=== PATIENT | female | born 1940 | race Caucasian/White ===

== ENCOUNTER 2017-06-11 12:57 | Observation (INO) | payer MEDICARE, BC ==
[~2017-06-11] VITALS: Ht 157.5 cm; Wt 72.6 kg
--- NOTE | ~2017-06-11 | HEMODYNAMI ---
PATIENT:VONNIE LARKIN MEDICAL RECORD: [id number] : 42 LOCATION:[address] ADMISSION DATE: 06/11/17 Generatedon:06/13/20179:26 Patient name: VONNIE LARKIN Patient #: [id number] SSN: : 1940 Date of study: 06/13/2017 Page: Of Hemodynamic Procedure Report Patient Data Patient Demographics Procedure consent was obtained First Name: VONNIE Gender: Female Last Name: TRAE : 1940 Patient #: [id number] Age: 77 year(s) Race: Additional ID: [id number] Contact details Address: [address] [place] [address] State: [place] City: [place] Zip code: [address] Past Medical History Allergies: No known allergies Admission Admission Data Admission Date: 06/11/2017 Admission Time: 18:20 Room #: 2121 Lab Results Lab Result Date: 06/12/2017 Lab Result Time: 0:00 Biochemistry Name Units Result Min Max BUN mg/dl 23 --(----)-* 7 18 Creatinine mg/dl 1.2 --(---*)-- 0.6 1.3 CBC Name Units Result Min Max Hemoglobin g/dl 14.3 --(*---)-- 13.5 17.5 Procedure Procedure Types Cath Procedure Diagnostic Procedure PCI Procedure Coronary Stent Coronary Stent Initial Miscellaneous Procedures Moderate Sedation up to 15 minutes Procedure Description Procedure Date Procedure Date: 06/13/2017 Procedure Start Time: 9:15 Procedure End Time: 9:25 Procedure Staff Name Function Phi Ramirez MD Performing Physician Helena Martins RT Monitor Xiao Bell RT Scrub Karan Anderson RN Nurse Procedure Data Cath Procedure Fluoroscopy Diagnostic fluoroscopy Total fluoroscopy Time: 1.8 time: 1.8 min min Diagnostic fluoroscopy Total fluoroscopy dose: 125 dose: 125 mGy mGy Contrast Material Contrast Material Type Amount (ml) Isovue 300 36 Entry Location Entry Primary Successful Side Size Upsize Upsize Entry Closure Succes sful Closure Location (Fr) 1 (Fr) 2 (Fr) Remarks Device Remarks Femoral Left 6 Fr Exoseal artery Short Estimated blood loss: 10 ml Procedure Complications No complications Procedure Medications Medication Administration Route Dosage Oxygen NC 2 l/min Heparin Flush Bag added to field 2 bags (1000units/500ml NS) 0.9% NaCl I.V. 100 ml/hr Fentanyl I.V. 50 mcg Versed I.V. 1 mg Fentanyl I.V. 50 mcg Versed I.V. 1 mg Fentanyl I.V. 50 mcg Versed I.V. 1 mg Heparin Bolus I.V. 4000 units Fentanyl I.V. 50 mcg Versed I.V. 1 mg Hemodynamics Rest HGB: 14.3 (g/dl) Heart Rate: 104 (bpm) Snapshots Pre Cath Intra NCS Post Cath Vital Signs Time Heart Resp SPO2 etCO2 NIBP (mmHg) Rhythm Pain Sedation Rate (ipm) (%) (mmHg) Status Level (bpm) 8:57:43 108 18 100 0 130/90(108) NSR 0 (11) 10(A) , No pain 9:01:53 103 18 99 31.7 124/77(100) NSR 0 (11) 10(A) , No pain 9:05:59 98 19 99 29.4 115/72(91) NSR 0 (11) 10(A) , No pain 9:10:07 98 19 99 30.9 119/71(91) NSR 0 (11) 10(A) , No pain 9:14:14 100 17 99 36.9 111/70(84) NSR 0 (11) 10(A) , No pain 9:18:22 103 18 96 30.9 104/64(81) NSR 0 (11) 9(A) , No pain 9:22:28 105 17 96 38.5 105/60(83) NSR 0 (11) 9(A) , No pain 9:24:41 106 17 97 36.2 112/60(89) NSR 0 (11) 9(A) , No pain Medications Time Medication Route Dose Verified Delivered Reason Notes Effectiveness by by 9:10:05 Oxygen NC 2 Phi Russo Per physician l/min Ashley Anderson RN 9:10:35 Heparin Flush added 2 Phi Karan used for Bag to bags Ashley Anderson RN procedure (1000units/500ml field NS) 9:10:48 0.9% NaCl I.V. 100 Phi Karan Per physician ml/hr Ashley Anderson RN 9:11:54 Fentanyl I.V. 50 Phi Karan for sedation mcg Ashley Anderson RN 9:12:01 Versed I.V. 1 mg Phi Karan for sedation Ashley Anderson RN 9:14:16 Fentanyl I.V. 50 Phi Karan for sedation mcg Ashley Anderson RN 9:14:19 Versed I.V. 1 mg Phi Karan for sedation Ashley Anderson RN 9:16:25 Fentanyl I.V. 50 Phi Karan for sedation mcg Ashley Anderson RN 9:16:28 Versed I.V. 1 mg Phi Karan for sedation Ashley Anderson RN 9:17:34 Heparin Bolus I.V. 4000 Phi Karan for units Ashley Anderson RN anticoagulation 9:18:05 Fentanyl I.V. 50 Phi Karan for sedation mcg Ashley Anderson RN 9:18:08 Versed I.V. 1 mg Phi Karan for sedation Ashley Anderson propagation worker Log Time Note 8:40:04 Informed consent obtained and on chart 8:40:07 Diagnostic Cath Status : Elective 8:40:47 Karan Anderson RN sent for patient. Start room use. 8:40:48 Time tracking: Regular hours 8:40:52 Plan of Care:Hemodynamics will remain stable., Cardiac rhythm will remain stable., Comfort level will be maintained., Respiratory function will remain adequate., Patient/ family verbilizes understanding of procedure., Procedure tolerated without complication., Recovers from procedure without complications.. 8:56:45 Vital chart was started 8:57:10 Patient received from Med II to CCL 2 Alert and oriented. Tansferred to table in Supine position. 8:57:11 Warm blankets applied, and salvatore hugger turned on for patient comfort. 8:57:11 Correct patient and procedure confirmed by team. 8:57:13 ECG and BP/O2 sat monitors applied to patient. 8:57:15 Baseline sample Acquired. 8:57:20 Rhythm: sinus tachycardia 8:57:23 Full Disclosure recording started 8:57:35 H&P Date Dictated: 06/11/2017 Within 30 days and on chart.. 8:57:38 Pre-procedure instructions explained to patient. 8:57:44 Family in patients room. 8:57:46 Patient NPO since Midnight. 8:57:52 Patient allergic to No known allergies 8:57:57 Is the patient allergic to Iodine/contrast media? No. 8:57:59 Was the patient premedicated? Yes 8:58:03 Is patient on blood thinner?Yes 8:58:06 ACC The patient was administered the following blood thiners within the last 24 hours: ACCPlavix 8:58:10 Patient diabetic? No. 8:58:22 Snore? Yes 8:58:24 Sleep apnea? No 8:58:29 Airway obstruction? No ? 8:58:35 Patient pain scale 0/10 ?. 8:58:48 Lab results completed and on chart. 8:58:53 Left groin area was prepped with chlora-prep and draped in sterile fashion 8:58:54 Alarms reviewed by R. N. 8:58:54 Sharps counted by scrub and verified by R.N. 8:58:56 Physician paged 9:00:45 Use device set TAUTH PCI 9:00:48 INFLATOR Merit BasixCompak ([id number]) opened to sterile field. 9:00:49 SHEATH 6FR Denbo (FTH735) opened to sterile field. 9:00:59 Use device set Femoral Dx 9:01:04 ACIST Syringe (25082) opened to sterile field. 9:01:05 Bag Decanter (2002S) opened to sterile field. 9:01:05 Medline Cath Pack ([id number]) opened to sterile field. 9:01:19 DIAGNOSTIC WIRE .035 260cm J wire (556475) opened to sterile field. 9:01:20 ACIST Hand Control (39856) opened to sterile field. 9:01:21 ACIST Manifold (71427) opened to sterile field. 9:01:22 Tegaderm 4 x 4 (1626W) opened to sterile field. 9:01:25 PERCUTANEOUS ENTRY 19GA needle opened to sterile field. 9:10:05 Oxygen 2 l/min NC was administered by Karan Anderson RN; Per physician; 9:10:35 Heparin Flush Bag (1000units/500ml NS) 2 bags added to field was administered by Karan Anderson RN; used for procedure; 9:10:48 0.9% NaCl 100 ml/hr I.V. was administered by Karan Anderson RN; Per physician; 9:11:27 Physician arrived 9::28 --------ALL STOP TIME OUT------ ::29 Final Timeout: patient, procedure, and site verified with staff and physician. All members of the team are in agreement. 9:11:32 Left groin site verified by team. 9:11:37 Physical assessment completed. ASA score P 2 - A patient with mild systemic disease as per Phi Ramirez MD. 9:11:41 Sedation plan: IV Moderate Sedation Medication:Versed, Fentanyl 9:11:54 Fentanyl 50 mcg I.V. was administered by Karan Anderson RN; for sedation; 9:12:01 Versed 1 mg I.V. was administered by Karan Anderson RN; for sedation; 9:12:40 Procedure type changed to Cath procedure, Diagnostic procedure, PCI procedure, Coronary Stent, Coronary Stent Initial, Miscellaneous Procedures, Moderate Sedation up to 15 minutes 9:14:16 Fentanyl 50 mcg I.V. was administered by Karan Anderson RN; for sedation; 9:14:19 Versed 1 mg I.V. was administered by Karan Anderson RN; for sedation; 9:15:07 Zero performed for pressure channel P1 9:15:13 Zero performed for pressure channel P1 9:15:20 Procedure started. 9:15:29 Local anesthetic to left femerol artery with Lidocaine 2% by Phi Ramirez MD.INITIAL ACCESS ONLY 9:15:40 A 6 Fr Short sheath was inserted into the Left Femoral artery 9:15:51 GUIDE 6FR XBLAD 3.5 catheter ([id number]) opened to sterile field. 9:16:04 6 Fr XBLAD 3.5 guide catheter was inserted over the wire 9:16:25 Fentanyl 50 mcg I.V. was administered by Karan Anderson RN; for sedation; 9:16:28 Versed 1 mg I.V. was administered by Karan Anderson RN; for sedation; 9:17:34 Heparin Bolus 4000 units I.V. was administered by Karan Anderson RN; for anticoagulation; 9:18:05 Fentanyl 50 mcg I.V. was administered by Karan Anderson RN; for sedation; 9:18:08 Versed 1 mg I.V. was administered by Karan Anderson RN; for sedation; 9:18:36 CHOICE PT Extra Support 182cm wire ([id number]) opened to sterile field. 9:18:51 Choice PT ex wire advanced. 9:18:53 Wire advanced across lesion. 9:19:32 FEMSTOP Gold ([id number]) opened to sterile field. 9:20:30 Inflation Number: 1 A PUJA RX 2.25 x 38 stent ([id number]) was prepped and advanced across the Mid LAD. The stent was deployed at 15 SAUD for 0:10 (min:sec). 9:21:13 Inflation number: 2 The stent balloon was then re-inflated across the Mid LAD to 15 SAUD for 0:20 (min:sec). 9:22:16 EXOSEAL 6Fr (EX600) opened to sterile field. 9:22:40 Wire removed. 9:22:40 Guide catheter removed. 9:23:35 Sheath removed intact; hemostasis achieved with Exoseal to the Left Femoral artery. 9:23:38 Procedure ended.(Physican Out) 9:23:54 Fluoroscopy time 01.80 minutes. 9:23:58 Fluoroscopy dose: 125 mGy 9:23:58 Flurop Dose total: 125 9:24:03 Contrast amount:Isovue 300 36ml. 9:24:04 Sharps counted by scrub and verified by R.N. 9:24:05 Insertion/operative site no bleeding no hematoma. 9:24:11 Post left femerol artery:stable 9:24:17 Post-procedure physical assessment completed. ASA score P 2 - A patient with mild systemic disease as per Phi Ramirez MD. 9:24:24 Estimated blood loss: 10 ml 9:24:26 Post procedure instruction explained to patient.Patient verbalizes understanding. 9:24:41 Procedure and supply charges have been captured, reviewed, submitted and are correct. 9:25:25 Procedure Complication : No complications 9:25:28 Vital chart was stopped 9:25:28 See physician's report for complete and final results. 9:25:30 Report given to Pre/Post Procedure Room. 9:25:35 Patient transfered to [facility] with Bed. 9:25:37 Procedure ended. 9:25:37 Full Disclosure recording stopped 9:25:44 ACC-PCI Only Patient was given prescriptions, or instructed by Phi Ramirez MD to start/continue the following medications upon discharge: Plavix 9:25:47 End room use (Document Last) Intervention Summary Intervention Notes Time ActionType Lesion and Equipment Used Action# Pressure Duration Attributes 9:20:30 Place stent Mid LAD PUJA RX 2.25 x 1 15 00:10 38 stent ([id number]) 9:21:13 Reinflate Mid LAD PUJA RX 2.25 x 2 15 00:20 stent 38 stent balloon ([id number]) Device Usage Item Name Manufacture Quantity Catalog Number [facility] Part Current M inimal Lot# / Charge Number Stock Stock Serial# Code INFLATOR Merit Merit 1 [id number] 356875 607202 1 5 Honeit, Inc. (MA8698) SHEATH 6FR Terumo 1 WYR363 344979 958005 160675 4 0 Denbo (MQN548) ACIST Syringe Acist 1 71771 921849 503402 167477 2 0 (39385) Medical Systems Inc Bag Decanter Microtek 1 2001S 886279 62310 877404 5 (2001S) Medical Inc. Medline Cath Cardinal 1 [id number] 285501 18204 595853 5 Pack Health ([id number]) DIAGNOSTIC St Srini 1 662176 528157 761636 564132 3 0 WIRE .035 260cm J wire (810757) ACIST Hand Acist 1 28795 932072 879805 000685 5 Control Medical (78975) Systems Inc ACIST Manifold Acist 1 67358 661510 680605 438582 5 (67880) Medical Systems Inc Tegaderm 4 x 4 3M 1 1626W 565050 114915 953454 5 (1626W) PERCUTANEOUS Cook Medical 1 D82798 980793 791535 5 ENTRY 19GA needle GUIDE 6FR Cardinal 1 [id number] 985208 030780 416212 1 0 XBLAD 3.5 Health catheter ([id number]) CHOICE PT [place] 1 [id number] 329258 653425 755789 5 Extra Support Scientific 182cm wire ([id number]) FEMSTOP Gold St Srini 1 M22638 822393 457246 874843 5 (K57067) PUJA RX 2.25 x Medtronic 1 [id number] 506058 3619075 883791 5 [id number] 38 stent ([id number]) EXOSEAL 6Fr Cardinal 1 EX600 881048 068386 659923 1 0 (EX600) Health Signature Audit [place] Stage Time Signature Unsigned Intra-Procedure 06/13/2017 Helena Martins 9:26:08 AM RT(R) Signatures Monitor : Helena Martins Signature : RT Date : Time : [id number] [place] [address]
--- NOTE | ~2017-06-11 | DS ---
PATIENT:VONNIE AGUILAR :42 MEDICAL RECORD: [id number] DISCHARGE SUMMARY ADMISSION DATE: 06/11/17 DISCHARGE DATE: 06/13/17 DISCHARGE DIAGNOSES: 1. Angina. 2. Coronary artery disease. 3. Percutaneous transluminal coronary angioplasty stent right coronary artery and left anterior descending this admission. HOSPITAL COURSE: Mrs. Aguilar presents with unstable anginal symptomatology, found to have 2-vessel disease of the RCA and LAD, underwent successful PTCA stent of above territories, had an uneventful postop course. She was discharged home to follow up with [facility] in 1 month with the addition of aspirin and Plavix to her medical regimen. TRANSINT:[id number] Voice Confirmation ID: [id number] DOCUMENT ID: [id number] АННА LANGLEY MD at 1759 CC: [id number] DICTATION DATE: 06/13/17923 GEOTHERMAL INSTALLER: 06/13/17 2249 DIS IN 06/13/17 [address] [place] [address]
--- NOTE | ~2017-06-11 | HP ---
PATIENT: VONNIE AGUILAR MEDICAL RECORD: [id number] ACCOUNT: [id number] LOCATION:[address] : 42 ADMISSION DATE: 06/11/17 HISTORY AND PHYSICAL EXAMINATION ADMITTING DIAGNOSES: 1. Chest pain compatible with angina, unstable. 2. Palpitations. 3. Hypertension. HISTORY OF PRESENT ILLNESS: Mrs. Aguilar has had 2 weeks of increasing episodes of chest pain, chest discomfort compatible with angina, very typical, crushing sensation across the anterior chest with radiation to the jaw. She had prolonged episode yesterday, presented to Emergency Room. Her troponin is normal. She has continued to have episodes of chest heaviness overnight and this morning. She was initially tachycardic. The tachycardia was treated with a beta-tomas. She is no longer tachycardic, but still having its symptomatology. REVIEW OF SYSTEMS: The patient reports easy bruising but reports no swollen glands. The patient reports no fever, no night sweats, no significant weight gain, no significant weight loss. No significant exercise tolerance. The patient reports no dry eyes, no irritation, no vision change. Patient reports no difficulty hearing and no ear pain. Patient reports no frequent nose bleeds or nose and sinus problems. Patient reports on arm pain on exertion. No shortness of breath while lying down. No history of heart murmur. Patient reports no cough, no wheezing or coughing up blood. Patient reports no abdominal pain, no vomiting. Normal appetite. No diarrhea and not vomiting blood. No nausea and no constipation. Patient reports no incontinence. No difficulty urinating. No hematuria. No increased frequency. Patient reports no muscle aches. No weakness, no arthralgias, no back pain. No swelling of the extremities. Patient reports no abnormal mole, no jaundice, no rashes. Reports no loss of consciousness. No weakness and no numbness. No seizures, dizziness, or headaches. The patient reports no depression, no sleep disturbance, feeling safe in a relationship and no alcohol abuse. Patient reports on fatigue. Reports no runny nose or sinus pressure. No itching, no hives, and no frequent sneezing. PHYSICAL EXAMINATION: GENERAL APPEARANCE: Well-nourished, well-developed, appears stated age. Level of distress, comfortable. PSYCHIATRIC: Mental status, alert, normal affect. Orientation, oriented to time, place and person. EYES: Lids and conjunctiva, noninjected. No discharge, no pallor. ENT: Lips, teeth, gums, normal dentition. Oropharynx, no cyanosis, no pallor. NECK: Carotid arteries, bilateral normal upstroke, no bruits, no thrills. JUGULAR VEINS: No jugular venous pressure or distention. CERVICAL LYMPH NODES: Nontender, nonenlarged. THYROID: Not enlarged. Nontender. No nodules. LUNGS: Respiratory effort, unlabored. CHEST: Normal curvature. No thoracic deformity. No chest wall tenderness. Percussion, resonant. Auscultation, clear. No wheezes, no rales, no rhonchi. CARDIOVASCULAR: Precordial exam, nondisplaced. No heaves or pericardial thrills. Rate and rhythm, regular. Heart sounds, normal S1, normal S2. No S3, no gallop, no rub. Systolic murmur, not heard. Diastolic murmur, not heard. HISTORY AND PHYSICAL [id number] NIRAJCRISELDAVONNIE EXTREMITIES: No cyanosis, no edema. Peripheral pulses, full and equal in all extremities, except as noted. No bruits appreciated. ABDOMEN: Soft, nondistended. Normal aorta. No bruit. Nontender. No masses. Liver, nontender, no hepatomegaly. Spleen, nontender, no splenomegaly. MUSCULOSKELETAL: No joint tenderness. No joint swelling. No erythema. NEUROLOGICAL: Normal gait, normal strength, normal tone. SKIN: Warm and dry. OVERALL IMPRESSION: Chest pain compatible with angina in an unstable fashion. We will proceed with coronary angiography. Further care depends upon findings of the angiography. TRANSINT:[id number] Voice Confirmation ID: [id number] DOCUMENT ID: [id number] АННА LANGLEY MD at 1025 CC: [id number] DICTATION DATE: 06/12/17 0809 GRISTMILL OPERATOR: 06/12/17 0911 ADM IN [facility] [address] [place] [address]
--- NOTE | ~2017-06-11 | OP ---
PATIENT NAME: VONNIE LARKIN MEDICAL RECORD: [id number] :42 LOCATION:D[address]2121 ADMISSION DATE:06/11/17 SURGEON: АННА LANGLEY MD DATE OF OPERATION: 06/13/2017 PROCEDURES: 1. PTCA stent to LAD. 2. Selective coronary angiography. INDICATION: Angina and coronary artery disease. PROCEDURE IN DETAIL: After informed consent was obtained and after detailed explanation of risks, benefits as well as alternative therapies, the patient elected to proceed with angiogram and angioplasty. The left femoral area was prepped and draped in normal sterile fashion. Left femoral artery was cannulated via modified Seldinger technique with placement of 6-Polish sheath. All catheters exchanged through this sheath. FINDINGS: The left anterior descending has 2 areas of 75% stenosis. These were both covered with a 2.25 x 38 mm Bronson stent taken to 15 atmospheres. Result was 0% residual stenosis. OVERALL IMPRESSION: Successful percutaneous transluminal coronary angioplasty stent of the left anterior descending going from 75% initial stenosis times 2 to 0% residual stenosis. TRANSINT:[id number] Voice Confirmation ID: [id number] DOCUMENT ID: [id number] АННА LANGLEY MD at 1759 CC: [id number] DICTATION DATE: 06/13/17925 DESOLDERER: 06/13/17 1247 DIS IN 06/13/17 [facility] [address] [place] [address]
--- NOTE | ~2017-06-11 | OP ---
PATIENT NAME: VONNIE LARKIN MEDICAL RECORD: [id number] :42 LOCATION:D[address]M2 [address].2121 ADMISSION DATE:06/11/17 SURGEON: АННА LANGLEY MD DATE OF OPERATION: 06/12/2017 PROCEDURES: 1. PTCA stent RCA. 2. Left heart catheterization. 3. Selective coronary angiography. 4. Left ventriculogram. INDICATION: Angina and coronary artery disease. PROCEDURE IN DETAIL: After informed consent was obtained and after detailed explanation of risks, benefits as well as alternative therapies, the patient elected to proceed with angiogram and angioplasty. The right femoral area was prepped and draped in normal sterile fashion. The right femoral artery was cannulated via modified Seldinger technique with placement of 6-Welsh sheath. All catheters exchanged through this sheath. FINDINGS: Left ventriculogram was performed in standard 30-degree HELMS view, reveals good cardiac wall motion throughout all segments. Overall ejection fraction estimated at 55%. SELECTIVE CORONARY ANGIOGRAPHY: 1. Left main showed no significant angiographic disease. 2. The left anterior descending has 70% stenosis in the mid vessel. 3. The left circumflex has moderate irregularities, but no flow-limiting stenosis. 4. The right coronary artery has 80% stenosis in the proximal vessel. PTCA STENT OF THE RIGHT CORONARY ARTERY: The stent used was a 3.0 x 12 mm Integrity. Result was 0% residual stenosis. OVERALL IMPRESSION: Successful percutaneous transluminal coronary angioplasty stent of the right coronary artery going from 80% initial stenosis to 0% residual. PLAN: PTCA stent of the LAD in the near future. TRANSINT:[id number] Voice Confirmation ID: [id number] DOCUMENT ID: [id number] АННА LANGLEY MD at 1018 CC: [id number] DICTATION DATE: 06/12/17 1155 [facility] NURSE: 06/12/17 1215 [place] [address]
--- NOTE | ~2017-06-11 | HEMODYNAMI ---
PATIENT:VONNIE LARKIN MEDICAL RECORD: [id number] : 42 [id number] ADMISSION DATE: 06/11/17 Generatedon:06/12/201711:55 Patient name: VONNIE LARKIN Patient #: [id number] SSN: : 1940 Date of study: 06/12/2017 Page: Of Hemodynamic Procedure Report Patient Data Patient Demographics Procedure consent was obtained First Name: VONNIE Gender: Female Last Name: TRAE : 1940 Patient #: [id number] Age: 77 year(s) Race: Unknown Additional ID: [id number] Contact details Address: [address] [place], [place] [id number] State: [place] City: [place] Zip code: [address] Past Medical History Allergies: No known allergies Admission Admission Data Admission Date: 06/11/2017 Admission Time: 18:20 Room #: 212 Lab Results Lab Result Date: 06/12/2017 Lab Result Time: 0:00 Biochemistry Name Units Result Min Max BUN mg/dl 23 --(----)-* 7 18 Creatinine mg/dl 1.2 --(---*)-- 0.6 1.3 CBC Name Units Result Min Max Hemoglobin g/dl 14.3 --(*---)-- 13.5 17.5 Procedure Procedure Types Cath Procedure Diagnostic Procedure [facility] w/Coronaries PCI Procedure Coronary Stent Coronary Stent Initial Miscellaneous Procedures Moderate Sedation up to 15 minutes Procedure Description Procedure Date Procedure Date: 06/12/2017 Procedure Start Time: 11:41 Procedure End Time: 11:51 Procedure Staff Name Function Phi Ramirez MD Performing Physician Johnna Yeager RN Nurse Isai Rankin RT Monitor Ashlee Ambrose RT Scrub Procedure Data Cath Procedure Fluoroscopy Diagnostic fluoroscopy Total fluoroscopy Time: 1.6 time: 1.6 min min Diagnostic fluoroscopy Total fluoroscopy dose: 216 dose: 216 mGy mGy Contrast Material Contrast Material Type Amount (ml) Isovue 300 61 Entry Location Entry Primary Successful Side Size Upsize Upsize Entry Closure Succes sful Closure Location (Fr) 1 (Fr) 2 (Fr) Remarks Device Remarks Femoral Right 5 Fr 6 Fr Exoseal artery Short Estimated blood loss: 10 ml Diagnostic catheters Device Type Used For End Catheter Placement MULTIPACK Pigtail 5 Fr Procedure catheter MULTIPACK JL 4.0 5Fr Procedure catheter MULTIPACK 3DRC 5Fr Procedure catheter Procedure Complications No complications Procedure Medications Medication Administration Route Dosage Oxygen NC 2 l/min Lidocaine 2% added to field 20 Heparin Flush Bag added to field 2 bags (1000units/500ml NS) 0.9% NaCl I.V. 100 ml/hr Versed I.V. 1 mg Fentanyl I.V. 50 mcg Versed I.V. 1 mg Fentanyl I.V. 50 mcg Heparin Bolus I.V. 4000 units Versed I.V. 1 mg Fentanyl I.V. 50 mcg Versed I.V. 1 mg Fentanyl I.V. 50 mcg Hemodynamics Rest HGB: 14.3 (g/dl) Heart Rate: 96 (bpm) Snapshots Pre Cath Intra NCS Post Cath Vital Signs Time Heart Resp SPO2 etCO2 NIBP (mmHg) Rhythm Pain Sedation Rate (ipm) (%) (mmHg) Status Level (bpm) 11:25:49 96 23 100 28.1 149/82(115) NSR 0 (11) 10(A) , No pain 11:30:31 98 17 99 26.6 143/83(115) NSR 0 (11) 10(A) , No pain 11:35:12 91 19 99 28.8 135/74(105) NSR 0 (11) 10(A) , No pain 11:39:50 86 15 95 30.4 129/70(103) NSR 0 (11) 10(A) , No pain 11:44:29 86 16 95 34.9 124/68(96) NSR 0 (11) 9(A) , No pain 11:49:10 90 19 94 26.5 125/69(95) NSR 0 (11) 9(A) , No pain 11:54:31 86 17 97 25.8 121/68(93) NSR 0 (11) 10(A) , No pain Medications Time Medication Route Dose Verified Delivered Reason Notes Effectiveness by by 11:31:46 Oxygen NC 2 Phi Buffie used for l/min Ashley Yeager RN procedure 11:31:53 Lidocaine 2% added 20ml Phihermelindo Yip for local to vial Ashley Ramirez MD anesthetic field 11:31:59 Heparin Flush added 2 Phi Phi used for Bag to bags Ashley Ramirez MD procedure (1000units/500ml field NS) 11:32:09 0.9% NaCl I.V. 100 Phi Oropeza Per physician ml/hr Ashley Yeager RN 11:39:58 Versed I.V. 1 mg Phi Buffie for sedation Ashley Yeager RN 11:40:05 Fentanyl I.V. 50 Phi Buffie for sedation mcg Ashley Yeager RN 11:42:51 Versed I.V. 1 mg Phi Buffie for sedation Ashley Yeager RN 11:42:55 Fentanyl I.V. 50 Phi Buffie for sedation mcg Ashley Yeager RN 11:45:03 Versed I.V. 1 mg Phi Garciaie for sedation Ashley Yeager RN 11:45:06 Fentanyl I.V. 50 Phi Buffie for sedation mcg Ashley Yeager RN 11:46:07 Heparin Bolus I.V. 4000 Phi Buffie for verifi ed units Ashley Yeager RN anticoagulation with dr ramirez 11:49:05 Versed I.V. 1 mg Phi Buffie for sedation Ashley Yeager RN 11:49:09 Fentanyl I.V. 50 Phi Buffie for sedation mcg Ashley Yeager RN Procedure Log Time Note 11:06:11 Johnna Yeager RN sent for patient. Start room use. 11:06:12 Time tracking: Regular hours 11:06:16 Plan of Care:Hemodynamics will remain stable., Cardiac rhythm will remain stable., Comfort level will be maintained., Respiratory function will remain adequate., Patient/ family verbilizes understanding of procedure., Procedure tolerated without complication., Recovers from procedure without complications.. 11:07:47 Lab Result : BUN 23 mg/dl 11:07:47 Lab Result : Creatinine 1.2 mg/dl 11:07:47 Lab Result : Hemoglobin 14.3 g/dl 11:07:50 Lab results completed and on chart. 11:16:38 Patient received from Med II to CCL 1 Alert and oriented. Tansferred to table in Supine position. 11:16:39 Warm blankets applied, and salvatore hugger turned on for patient comfort. 11:16:39 Correct patient and procedure confirmed by team. 11:16:40 ECG and BP/O2 sat monitors applied to patient. 11:16:42 Signed procedure consent form obtained from patient. 11:24:54 Vital chart was started 11:24:55 Full Disclosure recording started 11:24:59 Rhythm: sinus rhythm 11:25:23 H&P Date Dictated: 06/11/2017 Within 30 days and on chart.. 11:25:24 Pre-procedure instructions explained to patient. 11:25:25 Pre-op teaching completed and patient verbalized understanding. 11:25:27 Family in patients room. 11:25:29 Patient NPO since Midnight. 11:25:35 Patient allergic to No known allergies 11:25:38 Is the patient allergic to Iodine/contrast media? No. 11:25:56 Is patient on blood thinner?Yes 11:26:02 ACC The patient was administered the following blood thiners within the last 24 hours: ACCPlavix 11:26:04 Patient diabetic? No. 11:26:12 Previous problem with sedation/anesthesia? No ? 11:26:14 Snore? Yes 11:26:15 Sleep apnea? No 11:26:16 Deviated septum? No 11:26:17 Opens mouth fully? Yes 11:26:17 Sticks out tongue? Yes 11:26:19 Airway obstruction? No ? 11:26:22 Dentures? No ? 11:26:26 Pre procedure: right dorsailis pedis pulse 2+ Normal; easily identifiable; not easily obliterated 11:26:29 Patient pain scale 0/10 ?. 11:26:44 Right groin area was prepped with chlora-prep and draped in sterile fashion 11:26:50 Use device set Femoral Dx 11:26:51 ACIST Syringe (20648) opened to sterile field. 11:26:52 Bag Decanter (2002S) opened to sterile field. 11:26:52 Medline Cath Pack ([id number]) opened to sterile field. 11:26:52 SHEATH 5FR [place] (SUX649) opened to sterile field. 11:26:53 DIAGNOSTIC WIRE .035 260cm J wire (203849) opened to sterile field. 11:26:54 ACIST Hand Control (86192) opened to sterile field. 11:26:55 ACIST Manifold (42660) opened to sterile field. 11:26:55 DIAGNOSTIC Multipack 5Fr catheter set (VC3782) opened to sterile field. 11:26:56 Tegaderm 4 x 4 (1626W) opened to sterile field. 11:26:56 PERCUTANEOUS ENTRY 19GA needle opened to sterile field. 11:31:39 IV patent on arrival in right hand with 0.9% NaCl at [facility]. 11:31:46 Oxygen 2 l/min NC was administered by Johnna Yeager RN; used for procedure; 11:31:53 Lidocaine 2% 20ml vial added to field was administered by Phi Ramirez MD; for local anesthetic; 11:31:59 Heparin Flush Bag (1000units/500ml NS) 2 bags added to field was administered by Phi Ramirez MD; used for procedure; 11:32:09 0.9% NaCl 100 ml/hr I.V. was administered by Johnna Yeager RN; Per physician; 11:32:33 Baseline sample Acquired. 11:32:41 Rhythm: sinus rhythm 11:36:34 Zero performed for pressure channel P1 11:39:30 Physician arrived 11:39:30 --------ALL STOP TIME OUT------ 11:39:34 Final Timeout: patient, procedure, and site verified with staff and physician. All members of the team are in agreement. 11:39:36 Right groin site verified by team. 11:39:38 Physical assessment completed. ASA score P 2 - A patient with mild systemic disease as per Phi Ramirez MD. 11:39:41 Sedation plan: IV Moderate Sedation Medication:Versed, Fentanyl 11:39:58 Versed 1 mg I.V. was administered by Johnna Yeager RN; for sedation; 11:40:05 Fentanyl 50 mcg I.V. was administered by Johnna Yeager RN; for sedation; 11:41:31 Procedure started. 11:41:34 Local anesthetic to right femoral artery with Lidocaine 2% by Phi Ramirez MD.INITIAL ACCESS ONLY 11:41:43 A 5 Fr sheath was inserted into the Right Femoral artery 11:42:51 Versed 1 mg I.V. was administered by Johnna Yeager RN; for sedation; 11:42:55 Fentanyl 50 mcg I.V. was administered by Johnna Yeager RN; for sedation; 11:42:55 A MULTIPACK Pigtail 5 Fr catheter was advanced over the wire and used for Procedure. 11:43:13 LV gram done using HELMS 11:43:15 Injector settings: Ml/sec: 10, Volume: 20, 11:43:24 EF : 50 % 11:43:25 Catheter exchanged over wire. 11:43:36 A MULTIPACK JL 4.0 5Fr catheter was advanced over the wire and used for Procedure. 11:43:54 LCA angiography performed. 11:44:58 Catheter exchanged over wire. 11:45:03 Versed 1 mg I.V. was administered by Johnna Yeager RN; for sedation; 11:45:05 A MULTIPACK 3DRC 5Fr catheter was advanced over the wire and used for Procedure. 11:45:06 Fentanyl 50 mcg I.V. was administered by Johnna Yeager RN; for sedation; 11:45:41 CHOICE PT Extra Support 182cm wire ([id number]) opened to sterile field. 11:45:42 INFLATOR Merit BasixCompak (MB8656) opened to sterile field. 11:45:43 SHEATH 6FR [place] (WLO203) opened to sterile field. 11:45:52 RCA angiography performed. 11:45:56 Catheter removed. 11:46:04 Sheath upsized to a 6 Fr Short. 11:46:07 Heparin Bolus 4000 units I.V. was administered by Johnna Yeager RN; for anticoagulation; verified with dr ramirez 11:46:31 GUIDE 6FR 3DRC SH catheter ([id number]) opened to sterile field. 11:46:40 6 Fr 3drc sh guide catheter was inserted over the wire 11:48:10 choice pt es wire advanced. 11:48:35 Wire advanced across lesion. 11:48:57 Inflation Number: 1 A INTEGRITY RX 3.0 x 12 stent ([id number]) was prepped and advanced across the Prox RCA. The stent was deployed at 11 SAUD for 0:10 (min:sec). 11:49:01 Stent catheter was removed intact over wire. 11:49:01 Wire removed. 11:49:02 Guide catheter removed. 11:49:05 Versed 1 mg I.V. was administered by Johnna Yeager RN; for sedation; 11:49:09 Fentanyl 50 mcg I.V. was administered by Johnna Yeager RN; for sedation; 11:49:09 EXOSEAL 6Fr (EX600) opened to sterile field. 11:49:16 Sheath removed intact; hemostasis achieved with Exoseal to the Right Femoral artery. 11:49:18 Procedure ended.(Physican Out) 11:50:02 Fluoroscopy time 01.60 minutes. 11:50:15 Fluoroscopy dose: 216 mGy 11:50:15 Flurop Dose total: 216 11:50:18 Contrast amount:Isovue 300 61ml. 11:50:19 Sharps counted by scrub and verified by R.N. 11:50:21 Insertion/operative site no bleeding no hematoma. 11:50:23 Post-op/insertion site Right Femoral artery dressed using a 4 x 4 and Tegaderm. 11:50:27 Post right femoral artery:stable, soft, clean and dry 11:50:29 Post Procedure Pulses reassessed and unchanged 11:50:34 Post-procedure physical assessment completed. ASA score P 2 - A patient with mild systemic disease as per Phi Ramirez MD. 11:50:36 Post procedure rhythm: unchanged. 11:50:39 Estimated blood loss: 10 ml 11:50:41 Post procedure instruction explained to patient.Patient verbalizes understanding. 11:50:41 Patient needs reinforcement of post procedure teaching. 11:50:56 Procedure type changed to Cath procedure, Diagnostic procedure, LHC, LHC w/Coronaries, PCI procedure, Coronary Stent, Coronary Stent Initial, Miscellaneous Procedures, Moderate Sedation up to 15 minutes 11:51:20 Procedure and supply charges have been captured, reviewed, submitted and are correct. 11:51:22 Procedure Complication : No complications 11:51:25 Vital chart was stopped 11:51:26 See physician's report for complete and final results. 11:51:27 Report given to PCU. 11:51:29 Patient transfered to PCU with Stretcher. 11:51:43 Procedure ended. 11:51:43 Full Disclosure recording stopped 11:51:50 End room use (Document Last) Intervention Summary Intervention Notes Time ActionType Lesion and Equipment Action# Pressure Duration Attributes Used 11:48:57 Place stent Prox RCA INTEGRITY RX 1 11 00:10 3.0 x 12 stent ([id number]) Device Usage Item Name Manufacture Quantity Catalog Number Hospital Part Current Mini [facility] Lot# / Charge Number Stock Stock Serial# Code ACIST Acist 1 86368 850344 735368 624215 20 Syringe Medical (28169) Systems Inc Bag Decanter Microtek 1 950059 19108 554089 5 () Medical Inc. Medline Cath Cardinal 1 [id number] 691950 81813 920969 5 Pack Health ([id number]) SHEATH 5FR Terumo 1 IWL620 904733 982876 388179 40 [place] (XOM228) DIAGNOSTIC St Srini 1 877480 683711 598342 801530 30 WIRE .035 260cm J wire (516161) ACIST Hand Acist 1 89447 431834 508514 963757 5 Control Medical (01177) Systems Inc ACIST Acist 1 42065 138801 930349 717822 5 Manifold Medical (61956) Systems Inc DIAGNOSTIC Cardinal 1 ZG8550 803408 45152 652698 30 Multipack Health 5Fr catheter set (VB2924) Tegaderm 4 x 3M 1 1626W 804958 377657 330402 5 4 (1626W) PERCUTANEOUS Cook Medical 1 T87019 380041 862628 5 ENTRY 19GA needle MULTIPACK Cardinal 1 123415 5 Pigtail 5 Fr Health catheter MULTIPACK JL Cardinal 1 183185 5 4.0 5Fr Health catheter MULTIPACK Cardinal 1 538267 5 3DRC 5Fr Health catheter CHOICE PT Warren 1 [id number] 716915 702481 583746 5 Extra Scientific Support 182cm wire ([id number]) INFLATOR Merit 1 QH2855 828398 674625 499501 15 [place] Medical BasixCompak (AH0777) SHEATH 6FR Terumo 1 PGU848 688466 752867 733941 40 [place] (IEO141) GUIDE 6FR Medtronic 1 [id number] 823407 936415 828390 1 3DRC SH catheter ([id number]) INTEGRITY RX Medtronic 1 [id number] 836272 744146 274168 5 [id number] 3.0 x 12 stent ([id number]) EXOSEAL 6Fr Cardinal 1 EX600 482636 587408 393415 10 (EX600) Health Signature Audit [place] Stage Time Signature Unsigned Intra-Procedure 06/12/2017 Isai Rankin 11:55:13 AM RT(R) Signatures Monitor : Isai Rankin RT Signature : Date : Time : [address] [place] [address]
[~2017-06-11 12:57] MED LIST: ALEVE220 MG PO; ASPIRIN EC81 M1 PO; ASPIRIN325 MG PO; FLAGYL500 MG PO; LEVAQUIN500 MG PO; LEVOXYL150 MCG PO; LOPRESSOR25 MG PO; MULTI-DAY VITAM1 TAB PO; NEURONTIN600 MG PO; OXYCODONE HCL5 MG PO; PERCOCET 10/3251 TA1 PO; TRIAMTERENE-HCT1 TA1 PO
[2017-06-11 14:26] LABS: BASOPHILS 0.4 % (0-2); EOSINOPHILS 2.9 % (0-7); HEMATOCRIT 42.6 % (36.0-48.0); HEMOGLOBIN 14.3 g/dL (12-16); IMMATURE GRANULOCYTES 0.1 % (0-5); LYMPHOCYTES 27.5 % (15-50); MCH 30.8 pg (26.0-34.0); MCHC 33.6 g/dL (31.0-37.0); MCV 91.8 fL (80.0-100.0); MEAN PLATELET VOLUME 11.6 fL (7.4-10.4); NEUTROPHILS 60.1 % (40-80); PLATELET COUNT 202 10x3/uL (130-400); RBC 4.64 10x6/uL (4.00-5.40); RDW 12.8 % (11.5-14.5); WBC 8.6 10x3/uL (4.8-10.8)
[2017-06-11 14:29] LABS: APTT 36.6 SECONDS (22.8-39.4); INR 1.02 (0.85-1.17)
[2017-06-11 14:39] LABS: ALBUMIN 3.7 g/dL (3.4-5.0); ALKALINE PHOSPHATASE 76 U/L (46-116); ALT (SGPT) 26 U/L (10-68); BILIRUBIN - TOTAL 0.38 mg/dL (0.2-1.3); CALC OSMOLALITY 282 mosm/kg (275-300); CALCIUM 8.9 mg/dL (8.5-10.1); CHLORIDE - SERUM 102 mmol/L (98-107); CREATININE - SERUM 1.2 mg/dL (0.6-1.3); GLUCOSE 103 mg/dL (74-106); POTASSIUM - SERUM 3.9 mmol/L (3.5-5.1); PROTEIN - SERUM 7.5 g/dL (6.4-8.2); SODIUM 140 mmol/L (136-145); UREA NITROGEN 23 mg/dL (7-18); eGFR NON AFRICAN AMERICAN 46 mL/min (90-120)
[2017-06-11 14:47] LABS: CHOL - HDL RATIO 3.1 ratio (2.3-4.1); CHOLESTEROL, TOTAL 193 mg/dL (0-200); CKMB 0.7 U/L (0.0-3.6); CREATINE KINASE 58 UL (21-215); HDL CHOLESTEROL 62 mg/dL (32-96); LDL CHOLESTEROL 113 mg/dL (0-100); LDL-HDL RATIO 1.8 ratio (1.5-3.5); PRO BNP 198 pg/mL (0-450); THYROID STIMULATING HORMONE 0.02 uIU/mL (0.36-3.74); TRIGLYCERIDE 94 mg/dL (30-200)
[2017-06-11 14:54] LABS: TROPONIN-I < 0.017 ng/mL (0.000-0.060)
[2017-06-11 16:31] LABS: T4 THYROXIN - FREE 1.72 ng/dL (0.76-1.46); T4 THYROXINE 12.9 ug/dL (4.7-13.3)
[2017-06-11 19:00] VITALS: BP 120/72
[2017-06-12 01:42] VITALS: BP 120/72; Ht 157.5 cm; Wt 72.6 kg
[2017-06-12 04:00] VITALS: BP 127/69
[2017-06-12 08:02] VITALS: BP 134/76
[2017-06-12 12:00] VITALS: BP 131/072
[2017-06-12 16:00] VITALS: BP 128/070
[2017-06-12 21:54] VITALS: BP 118/63
[2017-06-13 01:14] VITALS: BP 103/54
[2017-06-13 06:08] VITALS: BP 139/74
[2017-06-13 09:18] VITALS: BP 115/67
[2017-06-13] MEDS ORDERED: PLAVIX75 MG PO (11:15)
== END 2017-06-13 13:32 | disposition home or self-care (01) ==
LOC: D.ER 12:57 → D.M2 18:20 → OBSVTIME 18:20 → D.M2 18:20
PROVIDERS: Emergency Medicine
DX: I25.110 Atherosclerotic heart disease of native coronary artery with unstable angina pectoris (principal); I10 Essential (primary) hypertension; R00.2 Palpitations; R00.0 Tachycardia, unspecified
CPT/HCPCS: 92928; 93458; C9600

== ENCOUNTER 2018-07-31 07:26 | Outpatient (CLI) | payer MEDICARE, BC ==
[~2018-07-31] VITALS: Ht 154.9 cm; Wt 68.2 kg
--- NOTE | ~2018-07-31 | HEMODYNAMI ---
PATIENT:VONNIE LARKIN MEDICAL RECORD: [id number] : 42 LOCATION:[facility] ADMISSION DATE: 07/31/18 Generatedon:07/31/20189:56 Patient name: VONNIE LARKIN Patient #: [id number] SSN: : 1940 Date of study: 07/31/2018 Page: Of Hemodynamic Procedure Report Patient Data Patient Demographics Procedure consent was obtained First Name: VONNIE Gender: Female Last Name: TRAE : 1940 Patient #: [id number] Age: 78 year(s) Race: Additional ID: [id number] Contact details [address]: [address] [place], [place] [id number] State: [place] City: [place] Zip code: [address] Past Medical History Allergies: No known allergies Admission Admission Data Admission Date: 07/31/2018 Admission Time: 7:26 Admit Source: Other Weight (lbs.): 149.92 Weight (kg.): 68 Lab Results Lab Result Date: 07/31/2018 Lab Result Time: 8:00 Biochemistry Name Units Result Min Max BUN mg/dl 26 --(----)-* 7 18 Creatinine mg/dl 1 --(--*-)-- 0.6 1.3 CBC Name Units Result Min Max Hematocrit % 41.6 -*(----)-- 42 54 Hemoglobin g/dl 13.9 --(*---)-- 13.5 17.5 Procedure Procedure Types Cath Procedure Diagnostic Procedure LHC LH w/Coronaries PCI Procedure Coronary Stent Coronary Stent Initial x2 Procedure Description Procedure Date Procedure Date: 07/31/2018 Procedure Start Time: 9:41 Procedure End Time: 9:55 Procedure Staff Name Function Phi Ramirez MD Performing Physician Johnna Yeager RN Nurse Karan Anderson RN Professional Athletes Coach Miquel Kidd RT Scrub Isai Rankin RT Monitor Kaylyn Ayers RN Professional Athletes Coach Procedure Data Cath Procedure Fluoroscopy Diagnostic fluoroscopy Total fluoroscopy Time: 4 time: 4 min min Diagnostic fluoroscopy Total fluoroscopy dose: 354 dose: 354 mGy mGy Contrast Material Contrast Material Type Amount (ml) Isovue 300 82 Entry Location Entry Primary Successful Side Size Upsize Upsize Entry Closure Stephenson ccessful Closure Location (Fr) 1 (Fr) 2 (Fr) Remarks Device Remarks Radial Right 6 Fr Mechanical artery Short Compression Estimated blood loss: 10 ml Diagnostic catheters Device Type Used For End Catheter Placement DIAGNOSTIC [place] 110cm 5 Procedure Fr catheter ([id number]) Procedure Complications No complications Procedure Medications Medication Administration Route Dosage 0.9% NaCl I.V. 100 ml/hr Oxygen etCO2 Nasal cannula 2 l/min Lidocaine 2% added to field 20 Heparin Flush Bag added to field 2 bags (1000units/500ml NS) Radial Cocktail added to field 1 syringe (Verapomil 2mg/Nitro 400mcg/Heparin 1500units) Versed I.V. 2 mg Fentanyl I.V. 50 mcg Heparin Bolus I.V. 4000 units Integrilin (Bolus I.V. 6.2 ml 2mg/ml) Plavix P.O. 600 mg Versed I.V. 2 mg Fentanyl I.V. 50 mcg Hemodynamics Rest HGB: 13.9 (g/dl) Heart Rate: 81 (bpm) Snapshots Pre Cath Intra NCS Post Cath Vital Signs Time Heart Resp SPO2 etCO2 NIBP Rhythm Pain Sedation Rate (ipm) (%) (mmHg) (mmHg) Status Level (bpm) 9:05:54 82 85 98 31.8 113/66(85) NSR 0 (11) 10(A) , No pain 9:10:03 81 16 98 31 116/66(96) NSR 0 (11) 10(A) , No pain 9:14:13 79 12 100 28 117/65(91) NSR 0 (11) 10(A) , No pain 9:18:23 79 12 98 29.5 103/65(84) NSR 0 (11) 10(A) , No pain 9:22:27 78 12 100 32.5 102/70(85) NSR 0 (11) 10(A) , No pain 9:26:31 78 11 99 30.2 103/66(81) NSR 0 (11) 10(A) , No pain 9:30:36 76 12 100 28 104/64(87) NSR 0 (11) 10(A) , No pain 9:34:42 78 11 99 29.5 106/67(88) NSR 0 (11) 10(A) , No pain 9:38:48 78 10 98 32.5 98/64(78) NSR 0 (11) 10(A) , No pain 9:42:54 78 11 98 34 92/58(73) NSR 0 (11) 9(A) , No pain 9:46:59 79 10 96 31.8 91/53(70) NSR 0 (11) 10(A) , No pain 9:51:03 83 10 98 32.5 89/58(73) NSR 0 (11) 9(A) , No pain 9:55:05 85 16 100 29.5 95/59(72) NSR 0 (11) 10(A) , No pain Medications Time Medication Route Dose Verified Delivered Reason Note s Effectiveness by by 9:05:24 0.9% NaCl I.V. 100 Phi Kaylyn used for ml/hr Ashley Ayers engineering scientist 9:05:32 Oxygen etCO2 2 l/min Phi Kaylyn used for Nasal Ashley Ayers procedure cannula RN 9:05:39 Lidocaine 2% added 20ml Phi Phi for local to vial Ashley Ramirez MD anesthetic field 9:05:43 Heparin Flush added 2 bags Phihermelindo Yip used for Bag to Ashley Ramirez MD procedure (1000units/500ml field NS) 9:05:51 Radial Cocktail added 1 Phihermelindo Yip used for (Verapomil to syringe Ashley Ramirez MD procedure 2mg/Nitro field 400mcg/Heparin 1500units) 9:41:35 Versed I.V. 2 mg Phi Kaylyn for sedation Ashley Aeyrs RN 9:41:41 Fentanyl I.V. 50 mcg Phi Kaylyn for sedation Ashley Ayers RN 9:46:34 Heparin Bolus I.V. 4000 Phi Kaylyn for veri fied units Ashley Ayers anticoagulation with Dr. LUCIANO Ramirez 9:46:49 Integrilin I.V. 6.2 ml Phi Kaylyn for wast ed (Bolus 2mg/ml) Ashley Ayers antiplatelet 3.8mL RN therapy 9:47:16 Plavix P.O. 600 mg Phi Kaylyn for Ashley Ayers antiplatelet RN therapy 9:47:25 Versed I.V. 2 mg Phi Patiño for sedation Ashley Ayers RN 9:47:31 Fentanyl I.V. 50 mcg Phi Patiño for sedation Ashley Ayers head host/hostess Log Time Note 8:43:23 Informed consent obtained and on chart 8:43:29 Patient Weight : 149.92 lbs 8:43:34 Admit Source: Other 8:45:00 Diagnostic Cath status Elective 8:45:02 Time tracking: Regular hours (M-F 7:00 - 5:00) 8:45:06 Plan of Care:Hemodynamics will remain stable., Cardiac rhythm will remain stable., Comfort level will be maintained., Respiratory function will remain adequate., Patient/ family verbilizes understanding of procedure., Procedure tolerated without complication., Recovers from procedure without complications.. 8:45:17 H&P Date Dictated: 07/29/2018 Within 30 days and on chart., H&P Addendum completed by physician on day of procedure. (MUST COMPLETE FOR ALL OUTPATIENTS). 8:45:18 Miquel COPE(R) sent for patient. Start room use. 8:46:24 Lab Result : BUN 26 mg/dl 8:46:24 Lab Result : Creatinine 1 mg/dl 8:46:24 Lab Result : Hemoglobin 13.9 g/dl 8:46:24 Lab Result : Hematocrit 41.6 % 8:46:26 Lab results completed and on chart. 8:54:26 Patient allergic to No known allergies 8:56:26 Patient received from Pre/Post Procedure Room to CCL 2 Alert and oriented. Tansferred to table in Supine position. 8:56:29 Warm blankets applied, and salvatore hugger turned on for patient comfort. 8:56:30 Correct patient and procedure confirmed by team. 8:56:31 ECG and BP/O2 sat monitors applied to patient. 8:56:31 Pre-procedure instructions explained to patient. 8:56:32 Pre-op teaching completed and patient verbalized understanding. 8:56:33 Family in waiting room. 8:56:35 Patient NPO since Midnight. 9:04:52 Vital chart was started 9:05:24 0.9% NaCl 100 ml/hr I.V. was administered by Kaylyn Ayers RN; used for procedure; 9:05:32 Oxygen 2 l/min etCO2 Nasal cannula was administered by Kaylyn Ayers RN; used for procedure; 9:05:39 Lidocaine 2% 20ml vial added to field was administered by Phi Ramirez MD; for local anesthetic; 9:05:43 Heparin Flush Bag (1000units/500ml NS) 2 bags added to field was administered by Phi Ramirez MD; used for procedure; 9:05:51 Radial Cocktail (Verapomil 2mg/Nitro 400mcg/Heparin 1500units) 1 syringe added to field was administered by Phi Ramirez MD; used for procedure; 9:11:53 Baseline sample Acquired. 9::55 Rhythm: sinus rhythm 9::57 Full Disclosure recording started 9::58 Is the patient allergic to Iodine/contrast media? No. 9:12:01 Was the patient premedicated? No 9:12:02 Is patient on blood thinner?No 9:12:03 Patient diabetic? No. 9:12:17 Previous problem with sedation/anesthesia? No ? 9:12:18 Snore? Yes 9:12:19 Sleep apnea? No 9:12:19 Deviated septum? No 9:12:20 Opens mouth fully? Yes 9:12:21 Sticks out tongue? Yes 9:12:22 Airway obstruction? No ? 9:12:24 Dentures? No ? 9:12:27 Pre procedure: right dorsailis pedis pulse 2+ Normal; easily identifiable; not easily obliterated 9:12:28 Modified Eduard's test Ulnar < 7 seconds 9:12:30 Patient pain scale 0/10 ?. 9:12:36 IV patent on arrival in right forearm with 0.9% NaCl at O. 9:12:40 Right Radial & Right Groin area was prepped with chlora-prep and draped in sterile fashion 9:12:41 Alarms reviewed by R. N. 9:12:41 Sharps counted by scrub and verified by R.N. 9:12:43 Use device set Radial Dx or PCI 9:12:44 ACIST Syringe (86135) opened to sterile field. 9:12:44 Medline Cath Pack ([id number]) opened to sterile field. 9:12:45 Bag Decanter (2002) opened to sterile field. 9:12:46 ACIST Hand Control (30182) opened to sterile field. 9:12:46 ACIST Manifold (69462) opened to sterile field. 9:12:46 Tegaderm 4 x 4 (1626W) opened to sterile field. 9:12:47 MBrace Wrist Support ([id number]) opened to sterile field. 9:12:50 SHEATH 6FR Slender (88-4510) opened to sterile field. 9:12:51 DIAGNOSTIC WIRE .035 260cm J wire (818305) opened to sterile field. 9:36:01 Zero performed for pressure channel P1 9:41:03 Physician arrived 9:41:03 --------ALL STOP TIME OUT------ 9:41:04 Final Timeout: patient, procedure, and site verified with staff and physician. All members of the team are in agreement. 9:41:05 Right Radial & Right Groin site verified by team. 9:41:08 Maximum allowable Isovue 300 dose 300ml. Physician notified. (300ml for normal creatinines. For patients with creatinine of 1.7 or higher multiply weight(kg) x 5 divided by creatinine.) 9:41:11 Fire Safety Assessment: A--An alcohol-based skin anteseptic being used preoperatively., C--Open oxygen or nitrous oxide is being used., D--An ESU, laser, or fiber-optic light is being used. 9:41:13 Physical assessment completed. ASA score P 2 - A patient with mild systemic disease as per Phi Ramirez MD. 9:41:16 Sedation plan: IV Moderate Sedation Medication:Versed, Fentanyl 9:41:21 Procedure started. 9:41:26 Local anesthetic to right radial artery with Lidocaine 2% by Phi Ramirez MD.INITIAL ACCESS ONLY 9:41:35 Versed 2 mg I.V. was administered by Kaylyn Ayers RN; for sedation; 9:41:35 A 6 Fr Short sheath was inserted into the Right Radial artery 9:41:41 Fentanyl 50 mcg I.V. was administered by Kaylyn Ayers RN; for sedation; 9:42:20 A DIAGNOSTIC [place] 110cm 5 Fr catheter ([id number]) was advanced over the wire and used for Procedure. 9:43:08 LV gram done using HELMS 9:43:10 Injector settings: Ml/sec: 5, Volume: 15, 9:43:12 LV hemodynamics recorded. 9:43:27 EF : 60 % 9:43:30 LCA angiography performed. 9:43:49 INFLATOR Merit LynnetteCompak (ZY7763) opened to sterile field. 9:43:50 CHOICE PT Extra Support 182cm wire ([id number]) opened to sterile field. 9:44:17 GUIDE 6FR AR 1.0 catheter ([id number]) opened to sterile field. 9:44:17 GUIDE 6FR XBLAD 3.5 catheter ([id number]) opened to sterile field. 9:44:46 Catheter removed. 9:45:41 6 Fr xblad 3.5 guide catheter was inserted over the wire 9:45:57 choice pt es wire advanced. 9:45:58 Wire advanced across lesion. 9:46:34 Heparin Bolus 4000 units I.V. was administered by Kaylyn Ayers RN; for anticoagulation; verified with Dr. Ramirez 9:46:49 Integrilin (Bolus 2mg/ml) 6.2 ml I.V. was administered by Kaylyn Ayers RN; for antiplatelet therapy; wasted 3.8mL 9:47:16 Plavix 600 mg P.O. was administered by Kaylyn Ayers RN; for antiplatelet therapy; 9:47:25 Versed 2 mg I.V. was administered by Kaylyn Ayers RN; for sedation; 9:47:26 Place stent Inflation Number: 1 A INTEGRITY RX 2.5 x 14 stent ([id number]) was prepped and advanced across the Prox LAD. The stent was deployed at 17 SAUD for 0:10 (min:sec). 9:47:28 Stent catheter was removed intact over wire. 9:47:31 Fentanyl 50 mcg I.V. was administered by Kaylyn Ayers RN; for sedation; 9:47:41 Wire removed. 9:47:42 Guide catheter removed. 9:47:49 6 Fr ar 1 guide catheter was inserted over the wire 9:47:57 choice pt es wire advanced. 9:48:15 Wire advanced across lesion. 9:51:38 Place stent Inflation Number: 1 A INTEGRITY RX 3.0 x 22 stent ([id number]) was prepped and advanced across the Prox RCA. The stent was deployed at 17 SAUD for 0:10 (min:sec). 9:51:42 Stent catheter was removed intact over wire. 9:51:43 Wire removed. 9:51:43 Guide catheter removed. 9:52:01 TR BAND Standard ([id number]) opened to sterile field. 9:52:08 Sheath removed intact; hemostasis achieved with Mechanical Compression to the Right Radial artery. 9:52:10 Procedure ended.(Physican Out) 9:53:19 Fluoroscopy time 04.00 minutes. 9:53:23 Fluoroscopy dose: 354 mGy 9:53:23 Flurop Dose total: 354 9:53:28 Contrast amount:Isovue 300 82ml. 9:53:29 Sharps counted by scrub and verified by R.N. 9:53:31 TR band inflated with 10cc of air. 9:53:33 Insertion/operative site no bleeding no hematoma. 9:53:38 Post right radial artery:stable, soft, clean and dry 9:53:39 Post Procedure Pulses reassessed and unchanged 9:53:42 Post-procedure physical assessment completed. ASA score P 2 - A patient with mild systemic disease as per Phi Ramirez MD. 9:53:44 Post procedure rhythm: unchanged. 9:53:46 Estimated blood loss: 10 ml 9:53:47 Post procedure instruction explained to patient.Patient verbalizes understanding. 9:53:47 Patient needs reinforcement of post procedure teaching. 9:54:01 Procedure type changed to Cath procedure, Diagnostic procedure, LHC, C w/Coronaries, PCI procedure, Coronary Stent, Coronary Stent Initial x2 9:55:18 Procedure and supply charges have been captured, reviewed, submitted and are correct. 9:55:20 Procedure Complication : No complications 9:55:22 Vital chart was stopped 9:55:22 See physician's report for complete and final results. 9:55:24 Report given to Pre/Post Procedure Room. 9:55:26 Patient transfered to Pre/Post Procedure Room with Stretcher. 9:55:28 Procedure ended. 9:55:28 Full Disclosure recording stopped 9:55:32 End room use (Document Last) Intervention Summary Intervention Notes Time ActionType Lesion and Equipment Action# Pressure Duration Attributes Used 9:47:26 Place stent Prox LAD INTEGRITY RX 1 17 00:10 2.5 x 14 stent ([id number]) 9:51:38 Place stent Prox RCA INTEGRITY RX 1 17 00:10 3.0 x 22 stent ([id number]) Device Usage Item Name Manufacture Quantity Catalog Number Hospital Part Current Mini mal Lot# / Charge Number Stock Stock Serial# Code ACIST Acist 1 29412 449544 558775 841033 20 Syringe Medical (85894) Systems Inc Medline Cath Medline 1 [id number] 931181 55795 149024 5 Pack ([id number]) Bag Decanter Microtek 1 2001S 696264 06694 598488 5 (2001S) Medical Inc. ACIST Hand Acist 1 60118 803054 481153 950928 5 Control Medical (69039) Systems Inc ACIST Acist 1 16997 720440 408837 466118 5 Manifold Medical (81939) Systems Inc Tegaderm 4 x 3M 1 1626W 061548 182063 730291 5 4 (1626W) MBrace Wrist Advanced 1 140-0250-00 484146 32845 955870 5 Support Vascular (485241932) Dynamics SHEATH 6FR Terumo 1 [id number] 065854 408751 879836 5 Slender (80-1060) DIAGNOSTIC St Srini 1 084803 699921 466775 006513 30 WIRE .035 260cm J wire (085391) DIAGNOSTIC Terumo 1 40-5679 573098 416696 129820 5 [place] 110cm 5 Fr catheter (331598) INFLATOR [facility] 1 PP5457 292997 056278 994045 [address] [facility] (IA8034) CHOICE PT [place] 1 [id number] 677595 197590 017677 5 Extra Scientific Support 182cm wire ([id number]) GUIDE 6FR AR Medtronic 1 [id number] 882802 30004 225859 1 1.0 catheter (EE4GX33) GUIDE 6FR Cardinal 1 [id number] 842264 452304 476956 10 XBLAD 3.5 Health catheter (03497455) INTEGRITY RX Medtronic 1 [id number] 569659 097271 763874 5 [id number] 2.5 x 14 stent ([id number]) INTEGRITY RX Medtronic 1 [id number] 443935 215287 181497 5 [id number] 3.0 x 22 stent ([id number]) TR BAND Terumo 1 [id number] 102030 210055 397894 40 Standard ([id number]) Signature Audit [place] Stage Time Signature Unsigned Intra-Procedure 07/31/2018 Isai Rankin 9:56:06 AM RT(R) Signatures Monitor : Isai Rankin RT Signature : Date : Time : [place] [id number] [facility], [facility]
[~2018-07-31 07:26] MED LIST changes: +PLAVIX75 MG PO
[2018-07-31] MEDS ORDERED: TENORMIN25 MG (07:46)
[2018-07-31 07:54] VITALS: BP 131/78; Ht 154.9 cm; Wt 68.2 kg
[2018-07-31 08:06] LABS: BASOPHILS 0.3 % (0-2); EOSINOPHILS 3.3 % (0-7); HEMATOCRIT 41.6 % (36.0-48.0); HEMOGLOBIN 13.9 g/dL (12-16); MCH 30.6 pg (26.0-34.0); MCHC 33.4 g/dL (31.0-37.0); MCV 91.6 fL (80.0-100.0); MEAN PLATELET VOLUME 10.7 fL (7.4-10.4); MONOCYTES 9.6 % (2-11); NEUTROPHILS 58.8 % (40-80); PLATELET COUNT 210 10x3/uL (130-400); RBC 4.54 10x6/uL (4.00-5.40); RDW 13.4 % (11.5-14.5); WBC 6.2 10x3/uL (4.8-10.8)
[2018-07-31 08:14] LABS: ANION GAP 12.6 mmol/L (8-16); CALCIUM 8.9 mg/dL (8.5-10.1); CARBON DIOXIDE 27.9 mmol/L (21.0-32.0)
[2018-07-31 08:17] LABS: POTASSIUM - SERUM 4.5 mmol/L (3.5-5.1)
[2018-07-31] MEDS ORDERED: PLAVIX75 MG PO (10:14)
--- NOTE | 2018-07-31 10:23 | NUR ---
PT RESTING COMFORTABLY. RIGHT RADIAL TR BAND IN PLACE. NO BLEEDING/HEMATOMA NOTED. VSS. CALL LIGHT WITHIN REACH.
--- NOTE | 2018-07-31 10:55 | NUR ---
PT RESTING COMFORTABLY. RIGHT WRIST TR BAND IN PLACE. NO BLEEDING/HEMATOMA NOTED. RIGHT CAP REFILL < 3 SECS. VSS. NO NEEDS AT THIS TIME.
--- NOTE | 2018-07-31 11:25 | NUR ---
RIGHT WRIST TR BAND IN PLACE. NO BLEEDING/HEMATOMA NOTED. HEAD OF BED INC TO 30 DEGREES. GIVEN COFFEE PER PT REQUEST. VSS.
--- NOTE | 2018-07-31 12:10 | NUR ---
PT ON BEDPAN. VOIDED WITHOUT DIFFICULTY APPROX 300cc OF CLEAR YELLOW URINE. FARHAD-CARE GIVEN.
--- NOTE | 2018-07-31 12:29 | NUR ---
PT RESTING COMFORTABLY. VSS. RIGHT WRIST TR BAND IN PLACE. NO BLEEDING/HEMATOMA NOTED. PT SET UP WITH SANDWICH TRAY. CALL LIGHT WITHIN REACH.
--- NOTE | 2018-07-31 13:02 | NUR ---
2cc OF AIR REMOVED FROM TR BAND. NO BLEEDING/HEMATOMA NOTED. VSS. PT TOLERATING FOOD/DRINK. DENIES NAUSEA. WILL CONTINUE TO MONITOR.
--- NOTE | 2018-07-31 13:17 | NUR ---
2cc OF AIR REMOVED FROM TR BAND. NO BLEEDING/HEMATOMA NOTED. VSS. NO NEEDS AT THIS TIME.
--- NOTE | 2018-07-31 13:30 | NUR ---
3cc REMOVED FROM TR BAND. NO BLEEDING/HEMATOMA NOTED. VSS. LEFT ARM PIV D/C'D WITH CATH TIP INTACT. PT TOLERATED WELL. PT INSTRUCTED TO GET UP AND DRESSED.
--- NOTE | 2018-07-31 13:55 | NUR ---
TR BAND REMOVED. DRESSING APPLIED. NO BLEEDING/HEMATOMA NOTED. DISCUSSED DISCHARGE INSTRUCTIONS WITH PT. SHE VOICED UNDERSTANDING. WAITING ON RIDE FROM A FRIEND.
--- NOTE | 2018-07-31 14:10 | NUR ---
PT TAKEN OUT TO VEHICLE BY WHEELCHAIR. RIGHT WRIST DRESSING C/D/I. NO S/S OF HEMATOMA NOTED. NO S/S OF DISTRESS NOTED. ALL BELONGINGS AND PAPERWORK IN HAND.
--- NOTE | 2018-07-31 14:58 | OP ---
PATIENT NAME: VONNIE LARKIN MEDICAL RECORD: [id number] :42 LOCATION:D.CAT ADMISSION DATE: SURGEON: АННА LANGLEY MD DATE OF OPERATION: 07/31/2018 DATE OF SERVICE: 07/31/2018 PROCEDURES: 1. PTCA stent RCA. 2. PTCA stent LAD. 3. Left heart catheterization. 4. Selective coronary angiography. 5. Left ventriculogram. INDICATION: Angina and coronary artery disease. PROCEDURE IN DETAIL: After informed consent was obtained and after a detailed explanation of risks, benefits as well as alternative therapies, the patient elected to proceed with angiogram and angioplasty. The right femoral area was prepped and draped in normal sterile fashion. Right femoral artery was cannulated via modified Seldinger technique with placement of 6-Greenlandic sheath. All catheters exchanged through the sheath. FINDINGS: The left ventriculogram was performed in standard 30-degree HELMS view, reveals good cardiac wall motion throughout all segments. Overall ejection fraction estimated at 60%. SELECTIVE CORONARY ANGIOGRAPHY: 1. Left main is with no significant angiographic disease. 2. Left anterior descending has a previously placed stents. There is 80% stenosis to 90% stenosis just proximal to the previously placed stent. 3. Left circumflex has moderate irregularities, but no flow-limiting stenosis. 4. The right coronary has previously placed stents. There is 80% stenosis proximal to this. PTCA STENT OF THE LAD and RCA: The LAD was addressed with a 2.5 x 15-mm Integrity, the RCA with a 3.0 x 22-mm Integrity. Result was 0% residual stenosis. OVERALL IMPRESSION: Successful percutaneous transluminal coronary angioplasty stent of the left anterior descending and right coronary artery going from 80% to 90% initial stenosis to 0% residual. TRANSINT:[id number] Voice Confirmation ID: [id number] DOCUMENT ID: [id number] АННА LANGLEY MD at 1458 CC: [id number] DICTATION DATE: 07/31/18 0957 INSTRUCTOR TRAINER CANINE SERVICE: 07/31/18 1009 DEP CLI 07/31/18 [facility] [address] [id number]
== END 2018-07-31 14:10 | disposition home or self-care (01) ==
LOC: D.CATH 07:26
PROVIDERS: ATTEND Internal Medicine Interventional Cardiology
DX: I25.110 Atherosclerotic heart disease of native coronary artery with unstable angina pectoris (principal)

== ENCOUNTER → 2019-10-29 08:05 | Outpatient (CLI) | payer MEDICARE, BC ==
[2018-07-31 07:54] VITALS: BMI 28.4
[~2019-10-29 08:05] MED LIST changes: +TENORMIN25 MG
== END | disposition home or self-care (01) ==
LOC: D.HCCARDIO 08:05
PROVIDERS: ATTEND Internal Medicine Cardiovascular Disease
DX: I25.10 Atherosclerotic heart disease of native coronary artery without angina pectoris (principal)

== ENCOUNTER → 2019-11-29 08:55 | Outpatient (CLI) | payer MEDICARE, BC ==
[2018-07-31 07:54] VITALS: BMI 28.4
== END | disposition home or self-care (01) ==
LOC: D.US 08:55
PROVIDERS: ATTEND Family Medicine
DX: R10.11 Right upper quadrant pain (principal)

== ENCOUNTER → 2019-12-09 09:18 | Outpatient (CLI) | payer MEDICARE, BC ==
[2018-07-31 07:54] VITALS: BMI 28.4
== END | disposition home or self-care (01) ==
LOC: D.NM 09:18
PROVIDERS: ATTEND Family Medicine
DX: R10.11 Right upper quadrant pain (principal)